=== PATIENT | female | born 1990 | race Caucasian/White ===

== ENCOUNTER 2017-10-23 05:23 | Emergency (ER) | payer OTHER ==
[2017-10-23] MEDS ORDERED: ACETAMINOPHEN 325 MG TABLET (FP) PO ONE (06:20)
[2017-10-23 06:33] VITALS: BP 129/87; PULSE 96; TEMP 98.8; BMI 22.6
--- NOTE | 2017-10-23 06:33 | PDOC ---
History of Present Illness - General Stated Complaint: FEVER,SORE THROAT Time Seen by Provider: 10/23/17 06:01 History Source: Patient Exam Limitations: No Limitations - History of Present Illness Initial Comments: CHIEF COMPLAINT: 27 y/o female with no significant PMH c/o flu like symptoms since yesterday. HISTORY OF PRESENT ILLNESS: The patient admits out of nowhere yesterday she developed body aches, fever, cough, runny nose and sore throat. she took nyquil with no relief. She did not have the flu shot this year. Vital signs on arrival are notable for REVIEW OF SYSTEMS: GENERAL/CONSTITUTIONAL: Subjective fever/chills. +body aches. No weakness. No weight change. HEAD, EYES, EARS, NOSE AND THROAT: No change in vision. No ear pain or discharge. + sore throat. CARDIOVASCULAR: No chest pain or shortness of breath. RESPIRATORY: +dry cought. No wheezing, or hemoptysis. GASTROINTESTINAL: No abd pain, nausea, vomiting, diarrhea. GENITOURINARY: No dysuria, frequency, or change in urination. MUSCULOSKELETAL: No joint or muscle swelling or pain. No neck or back pain. SKIN: No rash or easy bruising. NEUROLOGIC: No headache, vertigo, loss of consciousness, or loss of sensation. PHYSICAL EXAM: GENERAL: The patient is awake, alert, and fully oriented, in no acute distress. She is non toxic but ill appearing. HEAD: Normal with no signs of trauma. ENT: Pupils equal, round and reactive to light, extraocular movements intact, sclera anicteric, conjunctiva clear. Erythematous tonsils without edema or exudate. Uvula midline. LUNGS: Clear to auscultation bilaterally. Normal excursion. No respiratory distress or use of accessory muscles. CV: RRR, S1/S2, no MRG. Cap refill < 2 sec. ABDOMEN: Soft, non-distended, non-tender even to deep palpation, no hepatomegaly or splenomegaly, no masses. EXTREMITIES: Normal range of motion, no edema. NEUROLOGICAL: Normal speech, normal gait. CN II-XII grossly intact. SKIN: Warm, dry, normal turgor, no rashes or lesions noted. Past History - Past Medical History Allergies/Adverse Reactions: Allergies Allergy/AdvReac Type Severity Reaction Status Date / Time No Known Allergies Allergy Verified 01/24/12 02:34 Home Medications: Ambulatory Orders NK [No Known Home Medication] 10/23/17 - Suicide/Smoking/Psychosocial Hx Smoking Status: Yes Number of Cigarettes Smoked Daily: 2 Medical Decision Making - Medical Decision Making A/P: 27 y/o female with clinical flu. Will check strep. Rapid strep - negative Patient will be discharged with diagnosis of the flu. will send tamiflu. instructed her to alternate between tylenol and motrin every 3 hours for fever and body aches. suggested plenty of fluids and rest and return to the ER with any worsening or concerning symptoms. The patient verbalizes understanding of all instructions, has no further questions and is awaiting discharge. *DC/Admit/Observation/Transfer Diagnosis at time of Disposition: Influenza - Discharge Dispostion Disposition: HOME Condition at time of disposition: Stable - Referrals Referrals: Pedro Marie MD [Primary Care Provider] - - Patient Instructions Printed Discharge Instructions: DI for Influenza -- Adult Additional Instructions: Discharge instructions: -You have the flu -A prescription has been sent to your pharmacy -Alternate between 650mg of tylenol and 600mg of motrin every 3 hours for fever/ body aches -Drink plenty of liquids and get lots of rest -Return to the ER with any worsening or concerning symptoms - Post Discharge Activity Forms/Work/School Notes: Back to Work
[2017-10-23] MEDS ORDERED: ACETAMINOPHEN 325 MG TABLET (FP) ONE (06:35)
== END 2017-10-23 07:04 | disposition home or self-care (01) ==
LOC: JER 05:23
DX: J11.1 Influenza due to unidentified influenza virus with other respiratory manifestations (principal)
CPT/HCPCS: 87070; 87430; 99283-25

== ENCOUNTER 2022-02-22 04:27 | Day surgery (SDC) | payer BC ==
[2022-02-19 18:20] VITALS: BMI 25.2
[2022-02-22] MEDS ORDERED: LIDOCAINE HCL 1%, 10 MG/ML (20ML VIAL) ONE (14:00)
[2022-02-22] MEDS ORDERED: HEPARIN NA (PORCINE) 5,000 UNITS/ML 1ML VIAL ONE (14:01)
[2022-02-22] MEDS ORDERED: MIDAZOLAM HCL 2 MG/2 ML SINGLE DOSE VIAL ONE ×2 (14:38)
[2022-02-22] MEDS ORDERED: ACETAMINOPHEN 1000 MG/100 ML BAG IVPB ONE (14:55)
[2022-02-22] MEDS ORDERED: ceFAZolin SODIUM 1 GM VIAL IVPB ONE (15:00)
[2022-02-22] MEDS ORDERED: DEXTROSE 5%-0.45% SALINE 1,000 ML IV SCH (15:00)
[2022-02-22] MEDS ORDERED: oxyCODONE HCL 5 MG TABLET PO PRN (15:41)
[2022-02-22] MEDS ORDERED: ONDANSETRON 4 MG/2 ML VIAL IVPUSH STA (15:44)
[2022-02-22] MEDS ORDERED: LACTATED RINGERS SOLUTION 1,000 ML IV SCH (15:45)
[2022-02-22] MEDS ORDERED: ACETAMINOPHEN INJECTION 100 ML IVPB ONE (17:01)
[2022-02-22] MEDS ORDERED: IBUPROFEN 800 MG/8 ML IJ IVPB SCH (18:00)
[2022-02-22 18:46] VITALS: BP 112/61; PULSE 74; TEMP 98.1
== END 2022-02-22 18:30 | disposition home or self-care (01) ==
LOC: JASU-SURG 04:27
PROVIDERS: ATTEND Urology
PROC: 0T7B8ZZ Dilation of Bladder, Via Natural or Artificial Opening Endoscopic (ICD-10-PCS; principal; 2022-02-22 14:30)
PROC: 3E0K8GC Introduction of Other Therapeutic Substance into Genitourinary Tract, Via Natural or Artificial Opening Endoscopic (ICD-10-PCS; 2022-02-22 14:30)
DX: N30.10 Interstitial cystitis (chronic) without hematuria (principal); R35.0 Frequency of micturition
CPT/HCPCS: 81025; 94760; J1644

== ENCOUNTER 2024-07-06 22:17 | Emergency (ER) | payer BC ==
[2024-07-06 22:22] VITALS: BP 125/85; PULSE 75; RESP 20; TEMP 97.7; BMI 25.4
== END 2024-07-06 23:40 | disposition home or self-care (01) ==
LOC: JER 22:17
DX: R06.02 Shortness of breath (principal); R05.9 Cough, unspecified; U07.1 COVID-19
CPT/HCPCS: 99282-25

== ENCOUNTER 2025-03-16 18:57 | Emergency (ER) | payer BC ==
[2025-03-16 19:11] VITALS: BP 114/69; PULSE 69; RESP 18; TEMP 98.2; BMI 26.6
[2025-03-16] MEDS: IBUPROFEN 600 MG TABLET (FP) PO ONE (20:39)
[2025-03-16] MEDS ORDERED: IBUPROFEN 600 MG TABLET (FP) PO ONE (20:39)
== END 2025-03-16 20:49 | disposition home or self-care (01) ==
LOC: JERFT 18:57 → JER 18:57 → JERFT 20:49
PROC: 0HQGXZZ Repair Left Hand Skin, External Approach (ICD-10-PCS; principal; 2025-03-16)
DX: S61.012A Laceration without foreign body of left thumb without damage to nail, initial encounter (principal); W26.0XXA Contact with knife, initial encounter; Y92.009 Unspecified place in unspecified non-institutional (private) residence as the place of occurrence of the external cause; Y93.G1 Activity, food preparation and clean up
CPT/HCPCS: 99283-25